=== PATIENT | female | born 1960 | race Caucasian/White ===

== ENCOUNTER 2018-12-27 17:53 | Emergency (ER) | payer BC, OTHER ==
[~2018-12-27] VITALS: Ht 157.5 cm; Wt 70.0 kg
[2018-12-27 17:56] VITALS: Ht 157.5 cm; Wt 70.0 kg
[2018-12-27] MEDS ORDERED: ASPIRIN 325 MG TAB PO STA (18:48)
[2018-12-27] MEDS ORDERED: AL HYDROX/MG HYDROX/SIMETH 30 ML CUP PO ONE (19:00)
--- NOTE | 2018-12-27 19:12 | ERD ---
ER Documentation Chief Complaint Chief Complaint DIZZINESS, CHEST BURNNING,ARM NUMBNESS HPI Patient has a history of cardiomyopathy. Fibromyalgia. Complex regional pain syndrome. Has not implanted awake overnight monitor but not a defibrillator pacemaker. Last cardiac catheterization was 4 years ago with no stents placed. Patient presents today with intermittent chest burning that radiates to her right arm. Nonexertional, no shortness of breath. No nausea or vomiting. There is nothing she does to alleviate or exacerbate the symptoms. Patient has not had this before. Patient has had lots of stress she just had her mother's 2 days ago. No infectious symptoms. ROS All systems reviewed and are negative except as per history of present illness. Allergies Allergies: Coded Allergies: Penicillins (Verified Allergy, Unknown, RASH, 12/27/18) acetaminophen (Verified Allergy, Unknown, THROAT CLOSED, 12/27/18) hydrocodone (Verified Allergy, Unknown, RASH, 12/27/18) oxycodone (Verified Allergy, Unknown, THROAT CLOSED, 12/27/18) prednisone (Verified Allergy, Unknown, 12/27/18) PMhx/Soc History of Surgery: No Anesthesia Reaction: No Hx Respiratory Disorders: No Hx Cardiac Disorders: Yes (CARDIOMYOPATHY,AFIB) Hx Psychiatric Problems: No Hx Miscellaneous Medical Probl: Yes (FIBROMYALGIA,ULCER,CF SYNDROME,DIVERTICULITIS,PERIPHERAL NEUROPATHY) Hx Alcohol Use: No Hx Substance Use: No Hx Tobacco Use: No Smoking Status: Never smoker Physical Exam Vitals Vital Signs Date Temp Pulse Resp B/P (MAP) Pulse Ox O2 O2 Flow FiO2 Time Delivery Rate 12/27/18 81 17 124/86 96 Room Air 22:13 (99) 12/27/18 88 16 120/89 98 Room Air 19:00 (99) 12/27/18 98.1 102 18 158/87 99 17:56 (110) Physical Exam Const: No acute distress Head: Atraumatic Eyes: Normal Conjunctiva ENT: Normal External Ears, Nose and Mouth. Neck: Full range of motion. No meningismus. Resp: Clear to auscultation bilaterally Cardio: Regular rate and rhythm, no murmurs Abd: Soft, non tender, non distended. Normal bowel sounds Skin: No petechiae or rashes Back: No midline or flank tenderness Ext: No cyanosis, or edema Neur: Awake and alert Psych: Normal Mood and Affect Result Diagram: 12/27/188 12/27/18 1848 Results 24 hrs Laboratory Tests Test 12/27/18 18:48 12/27/18 21:44 White Blood Count 8.0 10^3/ul Red Blood Count 4.56 10^6/ul Hemoglobin 13.6 g/dl Hematocrit 40.0 % Mean Corpuscular Volume 87.7 fl Mean Corpuscular Hemoglobin 29.8 pg Mean Corpuscular Hemoglobin Concent 34.0 g/dl Red Cell Distribution Width 14.0 % Platelet Count 238 10^3/UL Mean Platelet Volume 10.2 fl Immature Granulocytes % 0.400 % Neutrophils % 70.2 % Lymphocytes % 23.6 % Monocytes % 4.7 % Eosinophils % 0.5 % Basophils % 0.6 % Nucleated Red Blood Cells % 0.0 /100WBC Immature Granulocytes # 0.030 10^3/ul Neutrophils # 5.6 10^3/ul Lymphocytes # 1.9 10^3/ul Monocytes # 0.4 10^3/ul Eosinophils # 0.0 10^3/ul Basophils # 0.1 10^3/ul Nucleated Red Blood Cells # 0.0 10^3/ul Sodium Level 139 mmol/L Potassium Level 3.7 mmol/L Chloride Level 107 mmol/L Carbon Dioxide Level 25 mmol/L Anion Gap 7 Blood Urea Nitrogen 15 mg/dl Creatinine 0.77 mg/dl Est Glomerular Filtrat Rate mL/min > 60 mL/min Glucose Level 101 mg/dl Calcium Level 9.8 mg/dl Troponin I < 0.012 ng/ml < 0.012 ng/ml Current Medications Medications Dose Sig/Maryanne Start Time Status Last (Trade) Ordered Route PRN Stop Time Admin Dose Reason Admin Aspirin 325 mg ONCE STAT 12/27/18 DC 12/27/18 (Aspirin) PO 18:48 12/27/18 19:15 18:51 Al 60 ml ONCE ONCE 12/27/18 DC 12/27/18 Hydrox/Mg PO 19:00 12/27/18 19:15 Hydrox/Simeth 19:01 icone (Mag-Al Plus) Procedures/MDM Limited Transthoracic Echocardiogram performed by me: Indication: Chest Pain/Shortness of breath, rule out pericardial effusion/CHF Pericardium: No effusion Cardiac: Normal contraction, no evidence of RV dysfunction Images archived in the medical record. ECG Time: 1801 Ventricular Rate: 91 Rhythm: normal sinus rhythm. ST Segments: without evidence of depressions or elevations Intervals: without evidence of AV block, new BBB, long QT, Brugada No evidence of delta wave. ECG Time: 1950 Ventricular Rate: 86 Rhythm: normal sinus rhythm. ST Segments: without evidence of depressions or elevations Intervals: without evidence of AV block, new BBB, long QT, Brugada No evidence of delta wave. The patient presents with chest pain and I considered pulmonary embolism, aortic dissection, pneumothorax among other diagnoses. Evaluation for acute coronary syndrome was performed. The HEART score was utilized for risk stratification and found to be < 3. Repeat EKG and troponin @ 3 hours were unchanged. Based on this evaluation the patients risk of major adverse cardiac events is <1%. Shared decision making occurred with patient and the decision has been made to discharge the patient for outpatient evaluation and functional study within 72 hours. Departure Diagnosis: Primary Impression: Chest pain DIEGO CESPEDES MD Dec 27, 2018 19:12
[2018-12-27 22:50] VITALS: BP 120/80; PULSE 86; RESP 24
== END 2018-12-27 22:50 | disposition home or self-care (01) ==
LOC: E/R 17:53
DX: R07.9 Chest pain, unspecified (principal)
CPT/HCPCS: 36415; 71045; 80048; 84484; 85025; 93005